=== PATIENT | male | born 1960 | race Caucasian/White ===

== ENCOUNTER 2021-05-29 23:47 | Emergency (ER) | payer MEDICARE ==
[~2021-05-29 23:47] MED LIST: BENADRYL25 MG PO; CEFDINIR300 MG PO; MEDROL 4MG DOSEP4 MG PO; PEPCID AC20 MG PO
[2021-05-30] MEDS ORDERED: PERCOCET 5-3251 EACH PO (03:28)
== END 2021-05-30 04:28 | disposition home or self-care (01) ==
LOC: FER 23:47
DX: S83.92XA Sprain of unspecified site of left knee, initial encounter (principal); W18.2XXA Fall in (into) shower or empty bathtub, initial encounter; Y92.002 Bathroom of unspecified non-institutional (private) residence as the place of occurrence of the external cause
CPT/HCPCS: 73552; 73564; 73590; 73610; 73630; 96374; 96375; 96376; J1170; J1885; J2405